=== PATIENT | female | born 1950 | race Hispanic/Latino ===

== ENCOUNTER 2018-08-02 15:46 | Inpatient (IN) ==
[2018-08-02] MEDS ORDERED: CARDIZEM ONE (16:30)
[2018-08-02] MEDS ORDERED: CARDIZEM IV ONE ×2 (16:38→16:52)
[2018-08-02] MEDS ORDERED: NS 1,000 ML IV ONE (16:38)
[2018-08-02] MEDS ORDERED: SOLU-MEDROL IV ONE (16:40)
[2018-08-02] MEDS ORDERED: DUONEB (A & A) INH ONE (16:40)
[2018-08-02 16:56] LABS: BASO# 0.04 X1000 (0.0-0.2); BASO% 0.5 % (0.0-0.8); EOS# 0.27 X1000 (0.0-0.7); HEMATOCRIT 45.1 % (37.0-47.0); HEMOGLOBIN 14.9 g/dL (12.0-16.0); IMM GRAN# 0.03 X1000 (0.0-0.04); IMM GRAN% 0.3 % (0.0-0.5); LYMPH# 1.61 X1000 (1.2-3.4); LYMPH% 18.1 % (20.5-51.1); MCH 29.7 PG (27-31); MONO# 1.26 X1000 (0.11-0.59); MONO% 14.2 % (1.7-9.3); MPV 11.4 FL (7.4-10.4); NEUT# 5.67 X1000 (1.4-6.5); NEUT% 63.9 % (42.2-75.2); PLT 363 X1000 (130-400); RBC 5.01 XMIL (4.2-5.4); RDW 16.1 % (11.5-14.5); WBC 8.88 X1000 (4.8-10.8)
[2018-08-02 17:22] LABS: AGAP 11; ALB/GLOB RATIO 1.3; ALKALINE PHOSPHATASE 113 U/L (32-104); BUN 14 mg/dL (8-22); CALCIUM 8.6 mg/dL (8.8-10.2); CHLORIDE 103 mmol/L (98-107); COSMO 280; CREATININE 0.9 mg/dL (0.5-0.9); ESTIMATED GFR > 60; GLUCOSE 101 mg/dL (70-104); GOT 64 U/L (10-30); GPT 76 U/L (10-36); POTASSIUM 3.7 mmol/L (3.5-5.1); SODIUM 140 mmol/L (136-145); TCO2 26 mmol/L (25-35); TOTAL BILIRUBIN 0.41 mg/dL (0.20-1.00); TOTAL PROTEIN 7.1 g/dL (6.3-8.3)
[2018-08-02] MEDS: CARDIZEM 125/NS 125 MG/125 ML IVPB IV SCH (17:37)
--- NOTE | 2018-08-02 18:11 | Diag Imaging Result Doc PS360 ---
EXAM: CHEST-PORTABLE HISTORY: sob TECHNIQUE: Portable chest single view COMPARISON: None. FINDINGS: The lungs are well expanded. The heart is not enlarged. The vessels are not distended. There are no infiltrates. No effusion identified. IMPRESSION: Negative exam. Electronically signed by Jamaal To 08/02/2018 6:09 PM
[2018-08-02] MEDS ORDERED: XOPENEX NEB INH PRN (19:55)
[2018-08-02] MEDS ORDERED: NS NEB INH SCH (19:55)
[2018-08-02] MEDS ORDERED: ZOFRAN IV PRN (19:55)
--- NOTE | 2018-08-02 20:00 | PROVIDER DOCUMENTATION ---
This chart was entered by Jaxson Gasca Scribe, acting as scribe for Josh Tellez MD. HPI-Cardiac General - General Chief Complaint: Chest Pain Stated Complaint: DR REFERRAL HIGH HEART RATE Time Seen by Provider: 08/02/18 16:27 Source: patient, family Allergies/Adverse Reactions: Patient Allergies Allergy/AdvReac Type Severity Reaction Status Date / Time No Known Allergies Allergy Verified 08/02/18 16:14 - History of Present Illness-Cardiac Nature of Presenting Problem: 67 yof speaking female no cardiac hx presents to ed with cc of worsening sob, fatigue, BLE swelling. Reports been to pcp 3 times in which was diagnosed with bronchitis and pna. Pt reports pcp did cxray which revealed a RLL field patch and a CT scan was done the impression was small bilateral pleural effusions and multichamber cardiomegaly. Pt reports she was given 4 different antibiotics with no relief. Continuing to have sob, BLE swelling, cough, fatigue, nausea and wheezing worse at night. Reports vomiting x 1 yesterday. Pt reports she has not been sent to a assessment rn. Allergies Contrast Dye and Penicillin. Severity in ED: moderate Onset/Duration: other (worsening over one month) Timing: getting worse Context/Activities at Onset: reports: none Modifying Factors: improves with: nothing Review of Systems - Adult - REVIEW OF SYSTEMS - ADULT Constitutional: reports: fatique. denies: chills, fever, night sweats Eyes: reports: no symptoms reported Ears, Nose, Mouth & Throat: denies: ear pain, sinus problem, throat pain Cardiovascular: reports: see HPI, chest pain, edema, irregular heart rate. denies: heart murmur, orthopnea, palpitations, syncope Respiratory: reports: cough, shortness of breath, wheezing. denies: dyspnea on exertion, hemoptysis, pleurisy Gastrointestinal: reports: nausea, vomiting. denies: abdominal pain, diarrhea, difficulty swallowing, frequent heartburn, poor appetite Genitourinary: reports: no symptoms reported Musculoskeletal: reports: other (BLE swelling). denies: bone pain, joint pain, joint swelling Integumentary: reports: no symptoms reported Neurological: reports: no symptoms reported Psychiatric: denies: anti-depressant use, panic attacks Endocrine: reports: no symptoms reported Hematologic/Lymphatic: denies: low blood count, lymphedema, prolonged bleeding Allergic/Immunologic: reports: no symptoms reported All Other Systems: Reviewed and Negative Past History - Adult - PAST MEDICAL HISTORY-ADULT Review of Records: reports: Nursing Assessment Review, Medications Reviewed Major Childhood Illnesses: reports: denies history Cardiovascular: reports: denies history Respiratory: reports: denies history Gastrointestinal: reports: denies history Obstetrical/Gynecological: reports: denies history Genitourinary: reports: denies history Musculoskeletal: reports: denies history Neurological: reports: denies history Endocrine/Immune: reports: denies history Other Conditions: reports: cataract/glaucoma - IMMUNIZATION STATUS Childhood Immunizations: See Nurse Assessment Flu Vaccine: See Nurse Assessment - FAMILY HISTORY Family History: reviewed, not pertinent Physical Exam-General - PHYSICAL EXAM-ADULT Initial Vital Signs Reviewed: Yes - CONSTITUTIONAL General Appearance: appears well, alert, no apparent distress, obese - EYES Eyes: PERRL/EOMI - HEAD, EARS, NOSE, MOUTH & THROAT HENMT: moist mucous membranes - NECK Neck: non-tender, full range of motion, supple, normal inspection - RESPIRATORY Respiratory: chest non-tender, no pleuratic chest pain, no respiratory distress , crackles (Bilateral lower lung espinosa). 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, grossly normal, no motor/sensory deficits - PSYCHIATRIC Psych/Mental Status: normal mood/affect, normal thought content, normal thought process, oriented x 3 - HEART Score HEART Score: History: Slightly Suspicious HEART Score: ECG: Normal HEART Score: Age: > or = 65 Years HEART Score: Risk Factors for Atherosclerotic Disease: 1 or 2 Risk Factors HEART Score: Troponin: < or = Normal Limit (3) Total HEART Score:: 3 Progress - PLAN OF CARE/RESULTS Progress/Plan/Lab Results: Vital Signs - 8 hr 08/02/18 15:52 08/02/18 16:51 08/02/18 17:47 Temperature 98.2 F Pulse Rate 137 H 116 H 142 H Respiratory Rate 18 28 H 18 Blood Pressure 125/91 100/77 O2 Sat by Pulse Oximetry 100 98 Laboratory Results - last 24 hr 08/02/18 08/02/18 08/02/18 16:25 16:25 16:25 WBC 8.88 RBC 5.01 Hgb 14.9 Hct 45.1 MCV 90.0 MCH 29.7 MCHC 33.0 RDW Std Deviation 16.1 H Plt Count 363 MPV 11.4 H Immature Gran % (Auto) 0.3 Neut % (Auto) 63.9 Lymph % (Auto) 18.1 L Rawlins % (Auto) 14.2 H Eos % (Auto) 3.0 Baso % (Auto) 0.5 Immature Gran # (Auto) 0.03 Neut # (Auto) 5.67 Lymph # (Auto) 1.61 Rawlins # (Auto) 1.26 H Eos # (Auto) 0.27 Baso # (Auto) 0.04 Sodium 140 Potassium 3.7 Chloride 103 Carbon Dioxide 26 Anion Gap 11 BUN 14 Creatinine 0.9 Estimated GFR/1.73 m2 > 60 BUN/Creatinine Ratio 16 Glucose 101 Calculated Osmolality 280 Calcium 8.6 L Magnesium Total Bilirubin 0.41 AST 64 H ALT 76 H Alkaline Phosphatase 113 H Troponin T < 0.010 Cba-P-Bavudzizups Pept Total Protein 7.1 Albumin 4.0 Globulin 3.1 Albumin/Globulin Ratio 1.3 TSH 08/02/18 08/02/18 08/02/18 16:25 16:25 16:25 WBC RBC Hgb Hct MCV MCH MCHC RDW Std Deviation Plt Count MPV Immature Gran % (Auto) Neut % (Auto) Lymph % (Auto) Rawlins % (Auto) Eos % (Auto) Baso % (Auto) Immature Gran # (Auto) Neut # (Auto) Lymph # (Auto) Rawlins # (Auto) Eos # (Auto) Baso # (Auto) Sodium Potassium Chloride Carbon Dioxide Anion Gap BUN Creatinine Estimated GFR/1.73 m2 BUN/Creatinine Ratio Glucose Calculated Osmolality Calcium Magnesium 2.0 Total Bilirubin AST ALT Alkaline Phosphatase Troponin T Ofp-G-Tdqkgqqmsum Pept 1661 H Total Protein Albumin Globulin Albumin/Globulin Ratio TSH 3.98 Orders Category Date Time Status Admit - [facility] Routine AdmDCTranf 08/02/18 19:55 Active Activity - Strict Bedrest ORDERED Care 08/02/18 19:55 Active DVT/PE Risk Assess/Protocol [QM] ORDERED Care 08/02/18 19:55 Active Intake and Output-Strict ORDERED Care 08/02/18 19:55 Active Nursing- MD Consult Request ROUTINE Care 08/02/18 19:55 Active Vital Signs Order Q1H Care 08/02/18 19:55 Active Z-Document. for Tele Applied ORDERED Care 08/02/18 19:55 Active Physician/Provider Consults Routine Cons 08/02/18 19:55 Ordered Heart Healthy Diet Diet 08/02/18 19:55 Active CHEST-PORTABLE [RAD] Routine Exams 08/03/18 06:00 Ordered CHEST-PORTABLE [RAD] Stat Exams 08/02/18 17:24 Completed US GB < RUQ (LIMITED) [US] Routine Exams 08/03/18 08:00 Ordered CBC WITH DIFF [HEME] Routine Lab 08/03/18 06:00 Ordered CBC WITH ELECTRONIC DIFF [HEME] Stat Lab 08/02/18 16:25 Completed CK PROFILE [SP CHEM] Routine Lab 08/03/18 06:00 Ordered CK TOTAL [CHEM] Q8H Lab 08/02/18 19:55 Ordered CK TOTAL [CHEM] Q8H Lab 08/03/18 03:55 Ordered CK TOTAL [CHEM] Q8H Lab 08/03/18 11:55 Ordered COMPREHENSIVE METABOLIC PANEL [CHEM] Routine Lab 08/03/18 06:00 Ordered COMPREHENSIVE METABOLIC PANEL [CHEM] Stat Lab 08/02/18 16:25 Completed HEPATITIS PROFILE [HH] Routine Lab 08/03/18 06:00 Ordered MAGNESIUM [CHEM] Routine Lab 08/03/18 06:00 Ordered MAGNESIUM [CHEM] Stat Lab 08/02/18 16:25 Completed PRO B-NATRIURETIC PEPTIDE Routine Lab 08/03/18 06:00 Ordered PRO B-NATRIURETIC PEPTIDE Stat Lab 08/02/18 16:25 Completed TROPONIN T Routine Lab 08/02/18 19:55 Uncollected TROPONIN T Stat Lab 08/02/18 16:25 Completed TSH Routine Lab 08/03/18 06:00 Ordered TSH Stat Lab 08/02/18 16:25 Completed 0.9% Sodium Chloride Inj [Ns] 1,000 ml Med 08/02/18 16:38 Discontinued IV 999 mls/hr Albuterol 2.5MG/Ipratrop 0.5MG [Duoneb (A & A)] Med 08/02/18 16:40 Discontinued 3 ml INH NOW ONE Diltiazem 125 mg/Ns [Cardizem 125/Ns] Med 08/02/18 17:15 Active 125 mg in 125 ml IV As Directed Diltiazem [Cardizem] Med 08/02/18 16:38 Discontinued 10 mg IV NOW ONE Diltiazem [Cardizem] Med 08/02/18 16:52 Discontinued 10 mg IV NOW ONE Diltiazem [Cardizem] Med 08/02/18 16:30 Discontinued 25 mg .ROUTE .STK-MED ONE Furosemide [Lasix] Med 08/03/18 09:00 Active 40 mg IV Q12H Levalbuterol Neb [Xopenex Neb] Med 08/02/18 19:55 Active 0.63 mg INH Q4H PRN PRN Methylprednisolone Sod Succ [Solu-Medrol] Med 08/02/18 16:40 Discontinued 60 mg IV NOW ONE Ondansetron [Zofran] Med 08/02/18 19:55 Active 4 mg IV Q4H PRN PRN Sodium Chloride 0.9% Neb [Ns Neb] Med 08/02/18 19:55 Active 5 ml INH DIRECTED Aerosol Treatments Routine Ot 08/02/18 16:40 Completed Aerosol Treatments Routine Ot 08/02/18 19:55 Active Aerosol Treatments Stat Ot 08/02/18 16:40 Completed Aerosol Treatments Stat Ot 08/02/18 19:55 Active Oxygen Device Routine Ot 08/02/18 19:55 Active Telemetry [OM.EQ] Routine Oth 08/02/18 19:55 Active EKG [EKG] Stat Ther 08/02/18 16:38 Ordered Echo Spec/Color Dop W/O Contra Routine Ther 08/03/18 08:00 Ordered Transfer/Admit Order [TRANSFER] Routine Transfer 08/02/18 18:05 Completed A/P: Afib with RVR. Pt was given Cardizem 2 - 10 mg iv at 16:30 pt HR was 158 Tachy Afib rvr BP was 157/118 O2 sat 99% and RR 20 Result Diagrams: 08/02/18 16:25 08/02/18 16:25 - REASSESSMENT Reassessment #1 Time Reassessed: 16:55 Status: unchanged (gave 10 mg cardizem, no change in rate still in 120-140) Reassessment #2 Time Reassessed: 17:05 Status: unchanged (gave 2nd dose of cardizem, no response, will start cardizem drip and get pt admitted.) Reassessment #3 Time Reassessed: 17:51 Status: unchanged (started cardizem drip, no change, will admit now) - EKG 1 Time of EKG reading by physician:: 15:57 EKG Read and Signed by:: Jossy Varner EKG Interpretation (*Must complete 3 of following elements*): Abnormal (cannot rule out anterior infarct age undetermined) Rate: 156 Rhythm: afib rvr Hartly: normal QRS: other (low voltage) ST Wave: normal - CONSULTS/PCP/HOSPITALIST Notification #1 *Consult/PCP/Hospitalist*: juan PENN Time Discussed: 20:00 Consult Disposition: Admit Departure - Departure Date of Disposition Decision: 08/02/18 Time of Disposition Decision: 20:00 DIAGNOSIS: Atrial fibrillation with RVR Disposition: ADMITTED INPATIENT 09 Certified Medical Emergency: Emergent Condition: Stable - Critical Care Note This patient required my direct & personal management of CC.: Yes Total Time (mins): 67 Critical Care Statement: This patient required my direct personal management to treat or rule out processes, the absence of which, could potentiallly result in sudden, clinically significant life or limb threatening deterioration. Attestation - Physician/ EMERITA Attestation Patient care was provided by Advanced Practice Provider:: No The physician spent face to face time with patient:: Yes Advanced Practice Provider documentation review:: Supervising physician onsite and consulted in the evaluation and care of this patient. The physician did have a face to face encounter with the patient. This chart was documented by the indicated scribe, (Jaxson Gasca Scribe) and accurately reflects the services I performed and decisions made by me, Josh Tellez MD, as attested by the provider's signature.
--- NOTE | 2018-08-02 20:02 | HISTORY AND PHYSICAL ---
CHIEF COMPLAINT: Shortness of breath. HISTORY OF PRESENT ILLNESS: Ms. Simmons is a 67-year-old, -speaking female who reported worsening shortness of breath x1 month, fatigue, bilateral lower extremity swelling. She reports she has been to her PCP 3 times. She believes his 1st name is Stephan. She could not recall his last name. He is here in [place]. She was diagnosed with bronchitis and pneumonia. She reports they did a chest x-ray that revealed a right lower lobe infiltrate, as well as a CT scan that showed small bilateral pleural effusions and multi-chamber cardiomegaly. She was given 4 rounds of antibiotics with no relief. She continued to have shortness of breath, bilateral lower extremity swelling, cough, fatigue, nausea with 1 episode of vomiting yesterday , and wheezing that gets worse at night. She has not been seen by a microstrategy architect. She reports her allergies are contrast dye and penicillin. Kiln Firer Helper at the time of examination was Dr. Tellez, the ED physician. We appreciate his help. She denies any headache, fever, chills, chest pain, chest pressure. 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 She was also found to be in atrial fibrillation with RVR. She was given 2 IV Cardizem boluses without any relief. She was initiated on a drip. She still remains in the high 40s. We will move her to the ICU. She is currently hemodynamically stable. Her chest x-ray is clear. She does have bilateral lower extremity pitting edema. PAST MEDICAL HISTORY: 1. Recent diagnosis of pneumonia and bronchitis, for which she has been on 4 types of antibiotics. 2. Hypertension. 3. Cataract and glaucoma. PAST SURGICAL HISTORY: I believe varicose vein procedure on her right leg. FAMILY HISTORY: Reviewed, not pertinent. SOCIAL HISTORY: The patient lives here in [place]. She is from [place]. She does not speak Estonian. She only speaks Kenyan. ALLERGIES: Contrast dye and penicillin. MEDICATIONS: Home medications have not been reconciled. However, she states that she is on eyedrops for her cataracts and enalapril as well as antibiotics. Again, those medications have not been reconciled. PHYSICAL EXAMINATION: VITAL SIGNS: Temperature is 98.2 degrees, heart rate 142, respirations 18, blood pressure 100/77, O2 is 98% on room air. GENERAL: Ms. Simmons is a pleasant, 67-year-old, -speaking female who is sitting up in the stretcher in no acute distress. She converses easily with Dr. Tellez who is my appointment specialist. HEENT: Atraumatic, normocephalic. PERRLA. NECK: Supple. Trachea midline. CARDIOVASCULAR: Irregularly irregular. She is atrial fibrillation with RVR on the monitor. She does have bilateral lower extremity edema. Bilateral pedal pulses are pounding. No notable JVD. PULMONARY: Bilateral breath sounds clear to auscultation. No rales, rhonchi, or wheezes noted. GASTROINTESTINAL: Soft, nontender, nondistended. Positive bowel sounds 4 quadrants. SKIN: Appears to be warm, dry, and intact. NEUROLOGIC: The patient is sitting up in the stretcher, awake, alert. She answers questions appropriately with Dr. Tellez who is my appointment specialist. She follows commands. Moves all extremities. DIAGNOSTIC DATA: Chest x-ray shows the lungs are well expanded. The heart is not enlarged. The vessels are not distended. There are no infiltrates, no effusions identified. EKG on the chart shows atrial fibrillation with RVR. LABORATORY DATA: White count 8, hemoglobin 14, hematocrit 45, platelet count is 363,000. Sodium 140, potassium 3.7, BUN 14, creatinine 0.9, blood glucose 101, total bilirubin of 0.41, AST 64, ALT 76, alkaline phosphatase 113. Troponin less than 0.010. ProBNP was 16 61. TSH was 3.98. Magnesium is pending. ASSESSMENT/PLAN: 1. New-onset atrial fibrillation with rapid ventricular response, without rate control at this time. She has been given 2 IV Cardizem boluses as well as started on a Cardizem drip. We will move her to the ICU. She is currently hemodynamically stable. Consult Cardiology. Check echocardiogram in the a.m. TSH is 3.98. Pending magnesium. Potassium is within normal range at 3.7. They have just increased her Cardizem drip. We will continue to monitor. Appreciate Cardiology's input. We will continue to trend her cardiac enzymes ; so far, they have been negative. 2. Transaminitis. We will recheck liver enzymes in the a.m., check a right upper quadrant ultrasound, as well as check a hepatitis profile in the a.m. 3. Hypertension. 4. Cataracts. We will continue her eyedrops when verified. 5. Recent diagnosis of a right lower lobe pneumonia as well as bilateral pleural effusions and multi-chamber cardiomegaly. However, her most recent chest x-ray does not show any cardiomegaly, no pleural effusions or pneumonia. She has been on 4 different antibiotics over the past month. We will do breathing treatments p.r.n. for any wheezing. 6. Bilateral lower extremity edema. This has been ongoing for about a month as well. 7.Question New onset heart failure, await echocardiogram. 8. Further recommendations to follow physician evaluation, laboratory, and diagnostic data. Dictated by YOLANDA Jackson for Cheng Jorgensen MD cc: MD David Morales MD [facility]
[2018-08-02] MEDS ORDERED: LANOXIN IV ONE ×2 (21:11→23:15)
[2018-08-02] MEDS: LOVENOX SUBQ SCH (21:29)
[2018-08-02 22:52] LABS: URINE SOURCE CLEAN CATCH
[2018-08-02 22:55] LABS: BILIRUBIN URINE NEGATIVE (NEGATIVE); BLOOD URINE NEGATIVE (NEGATIVE); COLOR YELLOW; GLUCOSE URINE NEGATIVE (NEGATIVE); KETONE URINE 40 mg/dL (NEGATIVE); LEUKOCYTES URINE NEGATIVE (NEGATIVE); NITRITE URINE NEGATIVE (NEGATIVE); PROTEIN URINE NEGATIVE (NEGATIVE); SP GRAVITY URINE 1.013; TURBIDITY URINE CLEAR (CLEAR); UR EPITHELIAL CELLS <10 /HPF (<10); URINE BACTERIA NEGATIVE /HPF; URINE RBC <10 /HPF (<10); URINE WBC <10 /HPF (<10); UROBILINOGEN URINE NORMAL (NORMAL)
[2018-08-02] MEDS: TYLENOL PO PRN (23:28)
[2018-08-03] MEDS: CARDIZEM 125/NS 125 MG/125 ML IVPB IV SCH ×3 (00:06→22:45)
[2018-08-03 05:26] LABS: HEMATOCRIT 40.6 % (37.0-47.0); HEMOGLOBIN 13.6 g/dL (12.0-16.0); IMM GRAN# 0.02 X1000 (0.0-0.04); IMM GRAN% 0.3 % (0.0-0.5); LYMPH# 0.73 X1000 (1.2-3.4); LYMPH% 9.2 % (20.5-51.1); MCH 29.9 PG (27-31); MCHC 33.5 g/dL (33-37); MCV 89.2 FL (81-99); MONO# 0.18 X1000 (0.11-0.59); MONO% 2.3 % (1.7-9.3); MPV 10.9 FL (7.4-10.4); NEUT# 6.98 X1000 (1.4-6.5); NEUT% 88.2 % (42.2-75.2); PLT 326 X1000 (130-400); RBC 4.55 XMIL (4.2-5.4); RDW 15.7 % (11.5-14.5); WBC 7.91 X1000 (4.8-10.8)
[2018-08-03 06:04] LABS: AGAP 9; ALB/GLOB RATIO 1.3; ALBUMIN 3.5 g/dL (3.5-5.0); ALKALINE PHOSPHATASE 94 U/L (32-104); BUN 13 mg/dL (8-22); CALCIUM 8.9 mg/dL (8.8-10.2); CHLORIDE 106 mmol/L (98-107); CK PROFILE 37 U/L (24-173); COSMO 286; CREATININE 0.7 mg/dL (0.5-0.9); ESTIMATED GFR > 60; GLUCOSE 175 mg/dL (70-104); GOT 43 U/L (10-30); GPT 57 U/L (10-36); MAGNESIUM 1.9 mg/dL (1.5-2.7); POTASSIUM 4.2 mmol/L (3.5-5.1); SODIUM 141 mmol/L (136-145); TCO2 26 mmol/L (25-35); TOTAL BILIRUBIN 0.41 mg/dL (0.20-1.00); TOTAL PROTEIN 6.1 g/dL (6.3-8.3)
[2018-08-03 06:06] LABS: LYMPHS 10 % (21-51); MONO 2 % (1-9); SEGS 88 % (42-75)
--- NOTE | 2018-08-03 07:17 | EKG Report ---
Test Performed on : 08/02/2018 3:57:00 PM Test Reason : afib Blood Pressure : / mmHG Vent. Rate : 156 BPM Atrial Rate : 166 BPM P-R Int : 000 ms QRS Dur : 072 ms QT Int : 288 ms P-R-T Axes : 000 044 025 degrees QTc Int : 464 ms Atrial fibrillation. with rapid ventricular response. Low voltage QRS Cannot rule out Anterior infarct , age undetermined Abnormal ECG No previous ECGs available Unconfirmed Result
--- NOTE | 2018-08-03 07:33 | Diag Imaging Result Doc PS360 ---
EXAM: CHEST-PORTABLE HISTORY: afib rvr TECHNIQUE: Chest single view COMPARISON: 08/02/2018 FINDINGS: The lungs are well expanded. The heart is not enlarged. No pulmonary edema. There are no infiltrates. No effusion identified. IMPRESSION: Stable chest Electronically signed by Jamaal To 08/03/2018 7:31 AM
[2018-08-03] MEDS: LASIX IV SCH ×2 (08:22→20:30)
[2018-08-03] MEDS: LOVENOX SUBQ SCH ×2 (08:22→20:30)
--- NOTE | 2018-08-03 09:19 | PROGRESS NOTE ---
DATE: 08/03/2018 SUBJECTIVE: Patient reports feeling much better, and reports breathing better. No chest pain. No chest palpitations. Denies any other complaints. OBJECTIVE: Vital Signs: Temperature 97 degrees, heart rate 84, respiratory 17, blood pressure 114/65, and O2 saturation 94% on room air. General: This is a 67-year-old female lying in bed in no acute distress. HEENT: Head is normocephalic, atraumatic. Neck: No JVD noted. No carotid bruits. No lymphadenopathy. No thyromegaly. Cardiovascular: S1, S2 heard. No murmurs or gallops, Irregularly irregular heart rhythm. Tachycardic. No murmurs, gallops, or rubs noted. Respiratory: Decreased air entry globally, but there are no crackles. No rhonchi. No wheezing noted. Patient is not using any accessory muscles or having work up breathing. Abdomen: Soft and a little bit distended. Nontender to palpation. Bowel sounds present. No organomegaly. Extremities: No clubbing, cyanosis, or edema. Peripheral pulses present in both legs. Neurological: Patient is alert and oriented x3. Moves all 4 extremities. LABORATORY DATA: White cell count 7.91, hemoglobin 13.6, hematocrit 40.6, and platelets 326,000. Normal BMP. Troponin's are normal. ProBNP has been elevated at 1380. Chest x-ray from this morning showed stable chest. ASSESSMENT AND PLAN: 1. New onset atrial fibrillation with rapid ventricular response. Currently, this patient has been admitted to the hospital for this condition. She is on Cardizem drip at 15 mg per hour. She has received digoxin as per Dr. Betts from Cardiology. Blood pressure is okay. At this point, we will continue following recommendations from Cardiology. An echo has been ordered, and considering that she has had a pneumonia that she is not completely sure she was completely treated, I am going to order a CT of the chest without contrast to see what it shows. 2. Transaminitis. AST and ALT have been slightly elevated. There is an order for hepatitis panel, and we will see what it shows. 3. Hypertension. Blood pressure is under control. We will continue with the same management. 4. Disposition. Of course, patient is on Cardizem drip so we will continue to monitor this patient closely in the ICU. cc: Montrell Leone MD
[2018-08-03] MEDS: LOPRESSOR IV SCH ×2 (11:35→18:20)
--- NOTE | 2018-08-03 12:53 | Diag Imaging Result Doc PS360 ---
EXAM: US GB < RUQ (LIMITED) 08/03/2018 HISTORY: elevated lfts TECHNIQUE: Right upper quadrant ultrasound COMMENT: The visualized portions of the aorta and inferior vena cava are within normal limits. There is antegrade flow in the portal vein. The visualized portions of the pancreas are unremarkable. There is no evidence of biliary dilatation the common bile duct measuring 5 mm. The right kidney is without evidence of hydronephrosis or mass. The gallbladder is clear and nontender. The liver is grossly normal in appearance. The study is generally suboptimal due to the patient's body habitus. This is especially true in the deeper portions of the liver. IMPRESSION: No evidence of acute disease. Electronically signed by Kuldeep Mendez 08/03/2018 12:50 PM
--- NOTE | 2018-08-03 13:16 | EKG Report ---
Test Performed on : 08/03/2018 1:02:35 PM Test Reason : afib Blood Pressure : / mmHG Vent. Rate : 080 BPM Atrial Rate : 117 BPM P-R Int : 000 ms QRS Dur : 090 ms QT Int : 408 ms P-R-T Axes : 000 065 051 degrees QTc Int : 470 ms Atrial fibrillation. with premature ventricular or aberrantly conducted complexes. Low voltage QRS Abnormal ECG When compared with ECG of 02-AUG-2018 15:57, (Unconfirmed) Vent. rate has decreased BY 76 BPM Non-specific change in ST segment in Anterior leads Confirmed by Yogi ISLAS, Misha Jesus ([id number]) on 08/04/2018 7:19:34 AM
--- NOTE | 2018-08-03 14:59 | Diag Imaging Result Doc PS360 ---
EXAM: CT THORAX W/O CONTRAST 08/03/2018 HISTORY: sob TECHNIQUE: This exam was performed using automated exposure control, adjustment of mA or kV according to patient size, and/or use of iterative reconstruction technique. COMMENT: There is a very small pleural fluid collection present in the left costophrenic sulcus posteriorly. There is some pleural thickening on both sides and linear opacity is present in the posterior costophrenic sulcus region of the right lower lobe which may be due to atelectasis or fibrosis. No previous studies are available for comparison. There is a fatty hilus containing precarinal node measuring almost 24 mm in diameter. This is nonspecific. Otherwise there is no evidence of significant adenopathy. There is a hemangioma in the vertebral body of T6. There is no evidence of acute bony abnormality. There is some fullness in the visualized portion of the left renal collecting system. There is an apparent cyst in the upper portion of the spleen measuring 2.9 cm in diameter. This has a CT density of 18 Hounsfield units. IMPRESSION: Minimal atelectasis and pleural changes in the lung bases posteriorly. Other nonacute findings as described above. Electronically signed by Kuldeep Mendez 08/03/2018 2:56 PM
[2018-08-03 15:19] LABS: INR 1.03; PROTIME 14.3 Seconds (11.0-16.0)
[2018-08-03 15:44] LABS: D-DIMER 0.87 ug/mLFEU (0.0-0.52)
--- NOTE | 2018-08-03 16:49 | CARDIOLOGY CONSULTATION ---
DATE: 08/03/2018 IMPRESSION: 1. Atrial fibrillation rapid ventricular rate. Heart rate now controlled with intravenous Cardizem. 2. Dyspnea for the past month. 3. Lower extremity edema. 4. Hypertension. 5. Recent pneumonia. Patient is status post several courses of outpatient antibiotics. RECOMMENDATIONS: 1. Continue intravenous Cardizem for rate control. 2. Continue Lovenox 1 mg/kg subcutaneously q.12 h. 3. Echocardiography. 4. Check D-dimer. 5. Check venous ultrasound of lower extremities. 6. If atrial fibrillation persists, may consider a SHIMON cardioversion. HISTORY: This 67-year-old female was admitted after she presented with worsening dyspnea with a past history 3-4 weeks and was found to have atrial fibrillation with rapid ventricular rate. She has had dyspnea symptoms for the last several weeks and has been treated with several rounds of antibiotics for possible pneumonia. There has been some bilateral lower extremity swelling. There has been no chest pain. She has been started on intravenous Cardizem and subcutaneous Lovenox. She is presently without shortness of breath on room air. PAST MEDICAL HISTORY: 1. Hypertension. 2. Glaucoma. 3. Cataract for recent pneumonia. ALLERGIES: She is allergic to iodine and penicillin. SOCIAL HISTORY: She lives in [place]. She is from [place] and does not speak [place]. She speaks only [place]. FAMILY HISTORY: Noncontributory. REVIEW OF SYSTEMS: Pulmonary: Noteworthy for dyspnea, as well as some nonproductive cough. Gastrointestinal: Negative. Constitutional: Negative. Review of systems negative/noncontributory with 14 total systems reviewed. PHYSICAL EXAMINATION: General: This is a pleasant older female, in no distress on room air. Vital signs: Blood pressure 121/50, heart rate 92 and irregular with ECG monitor showing atrial fibrillation, oxygen saturation 97% on room air. HEENT: Extraocular movements appear intact. Mucous membranes are moist. Neck: Supple without discernible jugular distention. Chest: Clear to auscultation bilaterally. Cardiac: Exam reveals an irregular rate and rhythm without appreciable murmur or gallop. Abdomen: Soft. Bowel sounds audible. Extremities: Demonstrate mild pretibial edema. Neurologic: Exam reveals her to be alert and fully oriented. Speech is fluent. She moves all 4 extremities equally well. DIAGNOSTIC STUDIES: A 12-lead EKG obtained on admission demonstrates atrial fibrillation with rapid ventricular rate response and low voltage QRS. Laboratory data includes a white blood cell count of 7.91 hematocrit 40.6, hemoglobin 13.6, platelet count 326,000. Sodium 141, potassium 4.2, chloride 106, carbon dioxide 26, BUN 13, creatinine 0.7. Initial troponin less than 0.01, follow-up troponin less than 0.01. ProBNP level 1661. TSH 3.98. cc: Frank Cain MD
[2018-08-03] MEDS: TYLENOL PO PRN (20:46)
[2018-08-03 21:20] LABS: URINE SOURCE CATH
[2018-08-03 21:35] LABS: BILIRUBIN URINE NEGATIVE (NEGATIVE); BLOOD URINE SMALL (NEGATIVE); COLOR ORANGE; GLUCOSE URINE NEGATIVE (NEGATIVE); KETONE URINE NEGATIVE (NEGATIVE); LEUKOCYTES URINE LARGE (NEGATIVE); NITRITE URINE NEGATIVE (NEGATIVE); PH URINE 5.5; PROTEIN URINE TRACE mg/dL (NEGATIVE); SP GRAVITY URINE 1.006; TURBIDITY URINE TURBID (CLEAR); UROBILINOGEN URINE NORMAL (NORMAL)
[2018-08-03 21:45] LABS: UR EPITHELIAL CELLS >10 /HPF (<10); URINE BACTERIA 1+ /HPF; URINE RBC <10 /HPF (<10); URINE WBC TNTC /HPF (<10)
[2018-08-03 22:03] LABS: URINE CASTS NONE SEEN; URINE CRYSTALS NONE SEEN; URINE SMALL ROUND CELLS NONE SEEN; URINE YEAST NONE SEEN
[2018-08-04] MEDS: LOPRESSOR IV SCH ×2 (00:10→04:31)
[2018-08-04 05:44] LABS: AGAP 10; BUN 16 mg/dL (8-22); CALCIUM 8.9 mg/dL (8.8-10.2); CHLORIDE 103 mmol/L (98-107); COSMO 286; CREATININE 0.7 mg/dL (0.5-0.9); ESTIMATED GFR > 60; GLUCOSE 120 mg/dL (70-104); POTASSIUM 3.5 mmol/L (3.5-5.1); SODIUM 142 mmol/L (136-145); TCO2 29 mmol/L (25-35)
[2018-08-04 05:47] LABS: BASO# 0.02 X1000 (0.0-0.2); BASO% 0.2 % (0.0-0.8); EOS# 0.11 X1000 (0.0-0.7); HEMOGLOBIN 13.8 g/dL (12.0-16.0); IMM GRAN# 0.04 X1000 (0.0-0.04); IMM GRAN% 0.3 % (0.0-0.5); LYMPH# 2.36 X1000 (1.2-3.4); LYMPH% 20.4 % (20.5-51.1); MCH 30.3 PG (27-31); MCHC 33.7 g/dL (33-37); MCV 89.9 FL (81-99); MONO# 1.23 X1000 (0.11-0.59); MONO% 10.6 % (1.7-9.3); MPV 11.2 FL (7.4-10.4); NEUT# 7.81 X1000 (1.4-6.5); NEUT% 67.5 % (42.2-75.2); PLT 387 X1000 (130-400); RBC 4.56 XMIL (4.2-5.4); RDW 16.2 % (11.5-14.5); WBC 11.57 X1000 (4.8-10.8)
--- NOTE | 2018-08-04 06:37 | ECHO REPORT ---
ORDER DATE: 08/03/2018 INTERPRETING PHYSICIAN: Dr. Montes De Oca CLINICAL INDICATIONS: 67-year-old female with atrial fibrillation. M-MODE MEASUREMENTS: Left ventricle end diastole: 4.7 cm. Left ventricle end systole: 3.0 cm. Posterior wall: 0.8 cm. Interventricular septum: 0.8 cm. Left atrium: 4.6 cm. Aortic root: 2.9 cm. SUMMARY OF 2-DIMENSIONAL IMAGING: The left ventricular function is normal. Ejection fraction estimated at 60-65% . No wall motion abnormality is noted. Tricuspid valve shows mild degree of regurgitation. Pulmonary pressure estimated at 36-41 mmHg. Pulmonic valve appears to be grossly normal. Aortic valve was normal. Color flow mapping indicates trace of regurgitation. Mitral valve shows mild degree of regurgitation. Pulse wave Doppler of mitral inflow shows single filling wave. Diastolic function cannot be properly evaluated. The right atrium is mildly enlarged. There is no pericardial effusion, mass and no thrombus. The right ventricle appears to be unremarkable. Clinical correction recommended. cc: Joaquín Montes De Oca MD MTDD
[2018-08-04] MEDS ORDERED: LOPRESSOR PO SCH ×2 (08:15→13:00)
[2018-08-04] MEDS: LASIX IV SCH ×2 (08:15→20:08)
[2018-08-04] MEDS: LOVENOX SUBQ SCH ×2 (08:16→20:14)
--- NOTE | 2018-08-04 08:53 | PROGRESS NOTE ---
DATE: 08/04/2018 SUBJECTIVE: Patient reports feeling much better. Actually, she reported that during the last couple weeks she was having dyspnea on minimal exertion and feeling palpitation as well. Now, all those symptoms are resolved. OBJECTIVE: Vital Signs: Temperature 98.6, heart rate 96, respiratory rate 20, blood pressure 123/77, O2 saturation 97% on room air. General examination: This is a 67-year-old female, lying in bed in no acute distress. HEENT: Head is normocephalic, atraumatic. Neck: No JVD noted. No carotid bruits. No lymphadenopathy. No thyromegaly. Cardiovascular exam: S1, S2 heard. Irregularly irregular heart rhythm. No murmurs, gallops, or rubs noted. Respiratory exam: Decreased air entry globally, but there are no crackles. There is no rhonchi or wheezing noted. Patient is not using any accessory muscles or having work of breathing. Abdomen: Soft. A little bit distended, but nontender to palpation. Bowel sounds present. No organomegaly. Extremities: No clubbing or cyanosis. Edema noted in both lower extremities. Neurological exam: Patient is alert and oriented x3. Moves 4 extremities. LABORATORY DATA: White cell count 11.57, hemoglobin 13.8, hematocrit 41.0, platelets 387. Normal BMP. ASSESSMENT AND PLAN: 1. New-onset atrial fibrillation with rapid ventricular response. Currently, this patient is receiving 5 mg of Cardizem per hour. Blood pressure is fine. She needed to be started on metoprolol 5 mg q. 6 hours because, even with Cardizem drip, the heart rate has been not well controlled. In any case, considering that this patient is having better heart rate, what we are going to do is to start Cardizem oral 30 mg every 6 hours, and we are going to change intravenous metoprolol to oral metoprolol. In this case it will be 12.5 mg oral every 6 hours scheduled. We will hold beta blockers if blood pressure is less than 90 or heart rate is less than 50. I think this patient is an ideal candidate for cardioversion. I talked with the patient about it, and she is completely okay with that procedure if Cardiology suggests that. The CT of the chest that we have ordered yesterday shows some atelectasis, but did not show any pneumonia. At this point, we will continue to monitor this patient closely in the intensive care unit because, as we mentioned before, she is still on Cardizem drip. 2. Transaminitis, aware. We will continue to monitor. 3. Hypertension. Actually, the blood pressure is completely under control. We will continue with same management. DISPOSITION: We will continue keeping this patient in intensive care unit because she requires still to be on Cardizem drip. We will monitor this patient closely. cc: Montrell Leone MD
[2018-08-04] MEDS: CARDIZEM PO SCH ×3 (09:02→20:08)
[2018-08-04 12:20] LABS: HEPATITIS PROFILE ACUTE SEE COMMENTS
[2018-08-04] MEDS ORDERED: CARDIZEM PO ONE (18:50)
--- NOTE | 2018-08-04 20:04 | PROGRESS NOTE ---
DATE: 08/04/2018 SUBJECTIVE: Regional Branch Manager via telephone utilized for encounter. Patient continues asymptomatic from a cardiovascular standpoint. She continues in atrial fibrillation with controlled rate and is still on intravenous Cardizem. OBJECTIVE: Vital Signs: Blood pressure 100/73, heart rate 104 and irregular with ECG monitor showing atrial fibrillation. Oxygen saturation 95%. There is no significant jugular venous distention. Chest: Clear to auscultation. Cardiac Exam: Reveals an irregular rate and rhythm without appreciable murmur or gallop. Extremities: Demonstrate very mild edema, distal right lower extremity with some stasis changes. LABORATORY DATA: Includes a white blood cell count 11.57, hematocrit 41.0, hemoglobin 13.8, platelet count 387. Sodium 142, potassium 3.5, chloride 103, carbon dioxide 29, BUN 16, creatinine 0.7, glucose 120. TSH 3.98, repeat TSH 0.9. Echocardiography reports normal left ventricular systolic function. IMPRESSION: 1. Atrial fibrillation with rapid ventricular rate. Heart rate better controlled. 2. Recent dyspnea symptoms for the past month as well as cough. 3. Hypertension. 4. Some chronic edema distal right lower extremity. Suspect more likely venous insufficiency. RECOMMENDATIONS: 1. Further management of atrial fibrillation discussed at length with the patient via inspector assembly. Possible pursuit of transesophageal echocardiography/cardioversion discussed at length. The patient wishes to hold off on this right now, and opts for treatment with rate control and anticoagulation. 2. Increase metoprolol and consider further increase in Cardizem as needed to facilitate weaning of IV Cardizem. 3. Continue Lovenox 1 mg/kg subcutaneously q.12. 4. Follow up on venous Doppler study. cc: Frank Cain MD
[2018-08-04] MEDS: LOPRESSOR PO SCH (20:08)
[2018-08-04] MEDS: CARDIZEM 125/NS 125 MG/125 ML IVPB IV SCH (21:33)
[2018-08-04] MEDS: TYLENOL PO PRN (23:01)
[2018-08-05] MEDS: LOPRESSOR PO SCH ×4 (01:24→20:42)
[2018-08-05] MEDS: CARDIZEM PO SCH (01:24)
[2018-08-05 05:14] LABS: BASO# 0.03 X1000 (0.0-0.2); BASO% 0.3 % (0.0-0.8); EOS% 2.2 % (0.0-10.0); HEMATOCRIT 41.6 % (37.0-47.0); HEMOGLOBIN 13.8 g/dL (12.0-16.0); LYMPH# 2.45 X1000 (1.2-3.4); LYMPH% 26.5 % (20.5-51.1); MCH 29.7 PG (27-31); MCHC 33.2 g/dL (33-37); MCV 89.7 FL (81-99); MONO# 1.27 X1000 (0.11-0.59); MONO% 13.7 % (1.7-9.3); MPV 10.9 FL (7.4-10.4); NEUT# 5.31 X1000 (1.4-6.5); NEUT% 57.3 % (42.2-75.2); PLT 366 X1000 (130-400); RBC 4.64 XMIL (4.2-5.4); WBC 9.26 X1000 (4.8-10.8)
[2018-08-05 05:42] LABS: AGAP 12; BUN 18 mg/dL (8-22); CALCIUM 8.6 mg/dL (8.8-10.2); CHLORIDE 98 mmol/L (98-107); COSMO 287; CREATININE 0.7 mg/dL (0.5-0.9); ESTIMATED GFR > 60; GLUCOSE 101 mg/dL (70-104); SODIUM 143 mmol/L (136-145); TCO2 33 mmol/L (25-35)
[2018-08-05] MEDS ORDERED: KLOR-CON PO ONE (06:48)
[2018-08-05] MEDS: LASIX IV SCH (08:34)
[2018-08-05] MEDS: KLONOPIN PO SCH ×2 (08:34→20:42)
[2018-08-05] MEDS: ELIQUIS PO SCH ×2 (08:34→20:42)
--- NOTE | 2018-08-05 08:59 | PROGRESS NOTE ---
DATE: 08/05/2018 SUBJECTIVE: Patient reports feeling fine. No palpitations, no chest pain, no shortness of breath. OBJECTIVE: Vital Signs: Temperature 97.3 degrees, heart rate 80, respiratory rate 13, blood pressure 106/62, O2 saturation 95% on room air. General examination: This is a 67-year-old female, lying in bed in no acute distress. HEENT: Head is normocephalic, atraumatic. Neck: No JVD noted. No carotid bruits. No lymphadenopathy. No thyromegaly. Cardiovascular exam: S1, S2 heard. Irregularly irregular, but no murmurs, gallops, or rubs noted. Respiratory exam: Decreased air entry globally, but there are no crackles, no rhonchi, no wheezing noted. Patient is not using any accessory muscles or having work of breathing. Abdomen: Soft. Nontender to palpation. Bowel sounds present. No organomegaly. Extremities: No clubbing or cyanosis. Mild edema in both lower extremities. Peripheral pulses present in both legs. Neurological exam: Patient is alert and oriented x3. Moves 4 extremities. LABORATORY DATA: CBC and BMP reviewed and only remarkable for potassium 3.0. ASSESSMENT AND PLAN: 1. New onset atrial fibrillation with rapid ventricular response. Now, the patient is feeling much better. She is not complaining of any palpitations or chest pain or shortness of breath. Heart rate has been controlled with oral medications. Cardizem drip has been stopped last night. At this time, what I am going to do is to increase the doses of Cardizem from 30 every 6 hours to 60 mg oral every 8 hours, total of 180 mg per day. Metoprolol has been increased to 25 mg oral every 6 hours. Blood pressure is fine, above 100 most of the time. So, we will continue with the same management. The patient receiving Lovenox and, in order to transition to oral medications, I will stop Lovenox and will start Eliquis 5 mg oral twice daily. The patient I think can be sent to a regular room today. 2. Patient reports being in a lot of distress, so she prefers to hold any procedure, like cardioversion, at this time. 3. Transaminitis, aware. 4. Hypertension. Blood pressure is under control. We will continue with same management. 5. Disposition: At this point, I am transferring this patient to a regular room. We will continue with oral medications to control heart rate, and if the patient continues to feel better, we will 6. discharge her within the next 24 to 48 hours. cc: Montrell Leone MD
--- NOTE | 2018-08-05 11:54 | Diag Imaging Result Doc PS360 ---
CHEST-2 VIEWS - 08/05/2018 INDICATION: needed for VQ scan COMPARISON: 08/03/2018 FINDINGS: The lungs are normally expanded and clear. Heart size and mediastinal contours are normal. No pneumothorax or pleural effusion. IMPRESSION: Negative exam. Electronically signed by Jose Chase 08/05/2018 11:51 AM
[2018-08-05] MEDS ORDERED: CARDIZEM PO SCH (13:00)
--- NOTE | 2018-08-05 13:11 | Diag Imaging Result Doc PS360 ---
EXAM: LUNG SCAN / VQ INDICATION: PE suspected TECHNIQUE: 40.8 mCi of technetium 99 DTPA was administered for the ventilation portion of the scan. 5.8 mCi of IV technetium 99 MAA was administered for the perfusion portion of the scan. COMPARISON: None. FINDINGS: There is a questionable slight perfusion defect on the LPO projection at the lung bases. This appears to correspond to the anteromedial basal segment of the left lower lobe. However, there appears to be a more subtle but matching defect on the ventilation portion of the scan. No unmatched defects are identified. IMPRESSION: Intermediate probability of pulmonary embolism. Electronically signed by Jeremy Colon 08/05/2018 1:08 PM
[2018-08-05] MEDS ORDERED: CARDIZEM CD PO ONE (19:44)
[2018-08-05] MEDS ORDERED: NS 250 ML IV ONE (19:50)
--- NOTE | 2018-08-05 21:40 | PROGRESS NOTE ---
DATE: 08/05/2018 SUBJECTIVE: Patient continues without chest discomfort or dyspnea. OBJECTIVE: Blood pressure 120/71, heart rate 91 with ECG monitor showing atrial fibrillation. There is no significant jugular venous distention.Chest: Clear to auscultation. Cardiac Exam: Reveals an irregular rate and rhythm without appreciable murmur or gallop. There is no evidence of peripheral edema. LABORATORY DATA: Includes a white blood cell count 9.26, hematocrit 41.6, hemoglobin 13.8, platelet count 366,000, sodium 143, potassium 3.0, chloride 98, carbon dioxide 33, BUN 18, creatinine 0.7, glucose 101. IMPRESSION: 1. Atrial fibrillation. Heart rate coming under better control. Management of atrial fibrillation discussed with the patient and at present she prefers rate control and anticoagulation. She desires to defer SHIMON/cardioversion. 2. Hypertension. RECOMMENDATIONS: 1. Adjust diltiazem to try better achieve rate control. She still manifests some tachycardia when she is up and ambulatory. 2. Continue anticoagulation with Eliquis. 3. Once patient achieves sufficient rate control, it would be reasonable for her to be discharged home to have outpatient followup. cc: Frank Cain MD
[2018-08-06] MEDS: LOPRESSOR PO SCH ×4 (02:48→20:59)
[2018-08-06 07:16] LABS: BASO# 0.02 X1000 (0.0-0.2); BASO% 0.3 % (0.0-0.8); EOS# 0.23 X1000 (0.0-0.7); EOS% 2.9 % (0.0-10.0); HEMOGLOBIN 14.6 g/dL (12.0-16.0); IMM GRAN# 0.02 X1000 (0.0-0.04); IMM GRAN% 0.3 % (0.0-0.5); LYMPH% 22.7 % (20.5-51.1); MCHC 33.2 g/dL (33-37); MCV 90.3 FL (81-99); MONO# 1.07 X1000 (0.11-0.59); MONO% 13.5 % (1.7-9.3); MPV 10.6 FL (7.4-10.4); NEUT# 4.78 X1000 (1.4-6.5); NEUT% 60.3 % (42.2-75.2); PLT 387 X1000 (130-400); RBC 4.87 XMIL (4.2-5.4); RDW 16.1 % (11.5-14.5); WBC 7.92 X1000 (4.8-10.8)
[2018-08-06 07:43] LABS: AGAP 9; BUN 15 mg/dL (8-22); CALCIUM 9.1 mg/dL (8.8-10.2); CHLORIDE 101 mmol/L (98-107); COSMO 288; CREATININE 0.8 mg/dL (0.5-0.9); ESTIMATED GFR > 60; GLUCOSE 101 mg/dL (70-104); POTASSIUM 3.5 mmol/L (3.5-5.1); SODIUM 144 mmol/L (136-145); TCO2 34 mmol/L (25-35)
[2018-08-06] MEDS: ELIQUIS PO SCH ×2 (08:28→20:59)
[2018-08-06] MEDS: CARDIZEM CD PO SCH (08:29)
[2018-08-06] MEDS: KLONOPIN PO SCH ×2 (08:29→20:59)
[2018-08-06] MEDS ORDERED: CARDIZEM CD PO SCH (09:00)
--- NOTE | 2018-08-06 14:44 | PROGRESS NOTE ---
DATE: 08/06/2018 SUBJECTIVE: The patient reports feeling fine. Denies any palpitations or shortness of breath. She was going to the bathroom without any problems. OBJECTIVE: Vital Signs: Temperature 97.9 degrees, heart rate 118, respiratory rate 20, blood pressure 112/86, O2 saturation 98% on 2 L nasal cannula. General: She is a 67-year-old female, lying in bed, in no acute distress. Cardiovascular: Irregularly irregular heart rhythm. Not tachycardic on my examination. No murmurs, gallops, or rubs. Respiratory: Exam clear bilaterally to auscultation. No work of breathing or using accessory muscles. Abdomen: Soft, nontender to palpation. Bowel sounds present. No organomegaly. Extremities: No clubbing, cyanosis, or edema. Peripheral pulses present in both legs. Neurological: Patient alert and oriented x3. Moves 4 extremities. LABORATORY DATA: Reviewed. ASSESSMENT AND PLAN: 1. New onset atrial fibrillation with rapid ventricular rate. It is much better controlled. The heart rate is sometimes about 100 but not that high. Currently, she is receiving 180 mg of Cardizem p.o. The patient is receiving metoprolol 25 mg IV q. 6 hours. We are going to hold today because of the relatively low blood pressure. We will resume it tomorrow if everything is okay. 2. Situational anxiety. The patient is an Klonopin. 3. Transaminitis, aware. 4. Hypertension. Blood pressure is under control. We will continue with same management. 5. Disposition: At this point, we will plan to observe for 24 hours. If heart rate is better, we will send home to follow up with Cardiology. cc: Montrell Leone MD
[2018-08-06] MEDS: TYLENOL PO PRN (21:03)
[2018-08-07] MEDS: LOPRESSOR PO SCH ×2 (01:14→10:09)
[2018-08-07 07:31] VITALS: BP 132/84
[2018-08-07] MEDS: ELIQUIS PO SCH (10:09)
[2018-08-07] MEDS: CARDIZEM CD PO SCH (10:09)
[2018-08-07] MEDS: KLONOPIN PO SCH (10:09)
--- NOTE | 2018-08-07 15:36 | DISCHARGE SUMMARY ---
ADMISSION DATE: 08/02/2018 DISCHARGE DATE: 08/07/2018 ADMISSION DIAGNOSES: 1. New onset atrial fibrillation with rapid ventricular response. 2. Transaminitis. 3. Hypertension. 4. Cataracts. 5. Recent diagnosis of right lower lobe pneumonia and bilateral pleural effusions with cardiomegaly. 6. Bilateral lower extremity edema. 7. Questionable new onset congestive heart failure. DISCHARGE DIAGNOSES: 1. New onset atrial fibrillation with rapid ventricular response. 2. Situational anxiety. 3. Transaminitis. 4. Hypertension. CONSULTATIONS: Cardiology, Dr. Cain. PROCEDURES OR SURGERIES: None. HOSPITAL COURSE: Ms. Marilu Simmons is a 67-year-old female who only speaks [place], comes in with complaints of worsening shortness of breath for one month that includes fatigue and bilateral lower extremity swelling. She had been to her primary care provider three times and was diagnosed with bronchitis and pneumonia in the right lower lobe. She had been given four rounds of antibiotics without relief. She continued to have shortness of breath with lower extremity swelling, cough, fatigue, nausea, and some vomiting on the day of admission. She had wheezing that was worse at night. She denied any cardiac workup. She did complain of some intermittent palpitations. EKG showed atrial fibrillation with RVR. She had been given Cardizem boluses without resolution in the rate, so was initiated on a Cardizem drip but continued to have a heart rate in the high 140s. She was transferred to ICU. Other hemodynamics were stable. Chest x-ray was clear. She was also found to have an elevation of transaminase enzymes. Hepatitis profile was ordered. Ultrasound of the right upper quadrant was also ordered. Ultrasound did not show any acute disease. She had an echocardiogram that showed a normal ejection fraction, although she did have some mild pulmonary hypertension with an elevation of 36 to 41 mmHg. By the next morning, her rate was more controlled. EKG showed a heart rate of 80, continued to be in atrial fibrillation and was still continued on IV Cardizem. [facility], Dr. Cain, saw her on the with recommendations to continue the IV Cardizem for rate control, continue the Lovenox that is weight based every 12 hours, and he wanted to check a D dimer and venous ultrasound as well. He recommended consideration of a SHIMON cardioversion if atrial fibrillation persisted. The following day, she continued to be in atrial fibrillation but the patient did not want to go forward with SHIMON cardioversion but elected for rate control medication and anticoagulation. Metoprolol was increased and Cardizem as well was being weaned. She had a VQ scan that was intermediate with probability of pulmonary embolism. Eventually, she was transitioned from subcutaneous Lovenox into Eliquis 5 mg p.o. daily. Her Cardizem drip was stopped and she was started on Cardizem 60 every eight hours and metoprolol to 25 every six hours. On 08/07/2018 heart rate was much more controlled. She was still having some tachycardia with activity but that was much more controlled as well. She was deemed appropriate for discharge home. DISCHARGE VITAL SIGNS: Temperature 97.6, heart rate 101, respiratory rate 16, blood pressure 132/84, O2 saturation is 100% on room air. DISCHARGE LAB DATA: White blood cells 7,000, hemoglobin 14, hematocrit 44, platelet count 387. Sodium 144, potassium 3.5, BUN 15, creatinine 0.8, glucose 101. Hepatitis profile was nonreactive. PERTINENT IMAGING: Chest x-ray on admission on 08/02/2018, negative exam. On 08/03/2018 it was a negative exam. On 08/05/2018 it was a negative exam. She had a lung VQ scan on 08/05/2018, which showed intermediate probability of pulmonary embolism. Chest CT on 2018 showed minimal atelectasis and pleural changes in the lung bases posteriorly. Echocardiogram on 08/03/2018 showed mild pulmonary hypertension, 36 to 41 mmHg, EF was 60% to 65% , and diastolic function could not properly be evaluated. The abdominal ultrasound on 2018 showed no acute disease. EKG on admission showed rate of 156, atrial fibrillation with RVR. Again on , atrial fibrillation but rate was 80. DISCHARGE MEDICATIONS: 1. Eliquis 5 mg p.o. twice daily. 2. Klonopin 0.5 mg p.o. twice daily p.r.n. 3. Cardizem CD 240 mg p.o. daily. 4. Toprol XL 50 mg p.o. daily. DISCHARGE DIET: Cardiac. DISCHARGE ACTIVITY: As tolerated. PHYSICIAN FOLLOWUPS: Dr. Cain in two to three weeks. Follow up with primary care provider as well. DISCHARGE INSTRUCTIONS: If short of breath or palpitations, dizziness, lightheadedness, please seek medical attention and take medications as prescribed. DISCHARGE DISPOSITION: Home. Dictated by YOLANDA Barrios for Montrell Leone MD Addendum: Patient seen and examined by myself. Agree with YOLANDA note. It reflects my assessment and plan. Patient is being discharged in stable condition. Will be seen by [facility] in 2 to 3 weeks. cc: YOLANDA Barrios MD [facility]
--- NOTE | 2018-08-09 17:58 | Extremity Venous Study ---
PROCEDURE NAME: Venous U/S Bilateral Legs - 08/03/2018 REFERRING PHYSICIAN: Frank Cain MD READING PHYSICIAN: Servando Harry MD COMPANY PILOT: [employer] RVT INDICATION: Leg swelling. FINDINGS: The deep and superficial veins of the lower extremities were imaged throughout their course. They are compressible, patent, and without thrombus. INTERPRETATION: No deep vein thrombosis (DVT) or superficial vein thrombosis (SVT) of either lower extremity. cc: MD Frank Moreno MD
== END 2018-08-07 11:44 | disposition home or self-care (01) | DRG 309 ==
LOC: ED 15:46 → ICU 19:17 → SUATTDRO 19:17 → 3N 08-05 16:23
PROVIDERS: ATTEND Internal Medicine
CPT/HCPCS: 71010; 71020; 71045; 71046; 71250; 76705; 78582; 80048; 80053; 80074; 81001; 82550; 83735; 83880; 84443; 84484; 85025; 85379; 85610; 87088; 93005; 93010; 93306; 93970; 94640; 94761; 96365; 96366; 96375; 99285; 99291; A9270; A9539; A9540; J1160; J1650; J1940; J2930; J7040